=== PATIENT | female | born 1965 | race Caucasian/White ===

== ENCOUNTER 2024-10-07 12:53 | Outpatient (CLI) | payer MEDICARE, MEDICAID ==
[~2024-10-07 12:53] MED LIST: ALBU8HFA IH; CLON0.1T2 PO; DULO60CA65 PO; HYDR-3686 PO; LIRA0.6P SQ; MELO-100 PO; TOP100T PO
--- NOTE | 2024-10-07 14:16 | RADIOLOGY REPORT ---
EXAM: MR MRI LOWER EXTREMITY RIGHT INDICATION: PAIN IN RIGHT FOOT TECHNIQUE: Multiplanar, multisequence imaging of the right foot without contrast COMPARISON: None FINDINGS: BONES: No MR evidence of an acute fracture, osseous contusion, or aggressive focal osseous lesion. MUSCLES: Normal signal intensity and morphology. TENDONS: Intact. LIGAMENTS: Intact. JOINT SPACES: No joint effusion. NEUROVASCULAR: Normal. OTHER: None. IMPRESSION: 1. No MR evidence of significant internal derangement of the right foot.
== END 2024-10-07 23:59 | disposition home or self-care (01) ==
LOC: MRI02 12:53
PROVIDERS: ATTEND Podiatrist Foot & Ankle Surgery
DX: M79.671 Pain in right foot (principal); D36.10 Benign neoplasm of peripheral nerves and autonomic nervous system, unspecified
CPT/HCPCS: 73718